=== PATIENT | male | born 1935 | race Caucasian/White ===

== ENCOUNTER 2020-12-08 10:52 | Emergency (ER) | payer OTHER ==
[~2020-12-08] VITALS: Ht 172.7 cm; Wt 77.1 kg
[2020-12-08] MEDS ORDERED: ZESTRIL2.5 MG PO (11:23)
[2020-12-08] MEDS ORDERED: INDAPAMIDE2.5 MG PO (11:24)
[2020-12-08] MEDS ORDERED: TAMSULOSIN HCL0.4 MG PO (11:25)
[2020-12-08] MEDS ORDERED: ALLOPURINOL100 MG PO (11:25)
[2020-12-08] MEDS ORDERED: FENOFIBRATE48 MG PO (11:26)
[2020-12-08] MEDS ORDERED: OMEPRAZOLE20 MG PO (11:26)
[2020-12-08] MEDS ORDERED: PEPCID20 MG PO (16:15)
[2020-12-08] MEDS ORDERED: INTESTINEX680 M1 PO (16:15)
== END 2020-12-08 16:21 | disposition home or self-care (01) ==
LOC: ER 10:52
DX: K52.9 Noninfective gastroenteritis and colitis, unspecified (principal)